=== PATIENT | male | born 1990 | race Caucasian/White ===

== ENCOUNTER 2017-06-29 03:38 | Emergency (ER) | payer SELFPAY ==
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
[2017-06-29 05:22] VITALS: RESP 18; TEMP 98.3
== END 2017-06-29 03:55 | disposition home or self-care (01) ==
LOC: ER 03:38
DX: F10.129 Alcohol abuse with intoxication, unspecified (principal)
CPT/HCPCS: 99282